=== PATIENT | female | born 2000 | race Caucasian/White ===

== ENCOUNTER → 2024-04-26 09:03 | Outpatient (REF) | payer BC, SELFPAY | LOC: RAD 09:03 | PROVIDERS: ATTENDING PHYSICIAN Physician Assistant Medical | DX: R05.1 Acute cough (principal) | CPT/HCPCS: 71046 ==

== ENCOUNTER 2025-09-06 08:36 | Emergency (ER) | payer OTHER, SELFPAY ==
[2025-09-06 08:42] VITALS: BP 133/94
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
[2025-09-06] MEDS: MOTRIN 600 MG PO (10:12)
== END 2025-09-06 10:18 | disposition home or self-care (01) ==
LOC: EMR 08:36
PROVIDERS: EMERGENCY PHYSICIAN Emergency Medicine; FAMILY PHYSICIAN Student in an Organized Health Care Education/Training Program
DX: S16.1XXA Strain of muscle, fascia and tendon at neck level, initial encounter (principal); V43.52XA Car driver injured in collision with other type car in traffic accident, initial encounter; Y92.410 Unspecified street and highway as the place of occurrence of the external cause
CPT/HCPCS: 99283